=== PATIENT | female | born 1970 | race Caucasian/White ===

== ENCOUNTER 2023-02-15 13:45 | Outpatient (RCR) | payer BC, SELFPAY | END 2023-04-08 14:51 | disposition home or self-care (01) | PROVIDERS: PCP Physician Assistant Medical; Visit Provider Physician Assistant Surgical | DX: Z48.89 Encounter for other specified surgical aftercare (principal); R29.898 Other symptoms and signs involving the musculoskeletal system; R29.3 Abnormal posture; R53.1 Weakness; Z74.09 Other reduced mobility; Z51.89 Encounter for other specified aftercare | CPT/HCPCS: 97110; 97162 ==

== ENCOUNTER 2023-05-07 10:09 | Outpatient (RCR) | payer BC, SELFPAY | END 2023-09-04 23:59 | disposition home or self-care (01) | PROVIDERS: PCP Physician Assistant Medical; Visit Provider Physician Assistant Medical | DX: M54.16 Radiculopathy, lumbar region (principal); M79.604 Pain in right leg; Z51.89 Encounter for other specified aftercare | CPT/HCPCS: 97110; 97162 ==

== ENCOUNTER 2024-01-07 10:06 | Outpatient (CLI) | payer BC, SELFPAY | END 2024-01-07 10:07 | disposition home or self-care (01) | LOC: INJ CL 10:09 | PROVIDERS: PCP Physician Assistant Medical; Visit Provider Family Medicine | DX: M53.3 Sacrococcygeal disorders, not elsewhere classified (principal) | CPT/HCPCS: 27096; J0702; Q9966 ==

== ENCOUNTER 2024-07-07 21:00 | Outpatient (CLI) | payer BC, SELFPAY | END 2024-07-07 21:01 | disposition home or self-care (01) | PROVIDERS: PCP Physician Assistant Medical; Visit Provider Physician Assistant Medical | DX: G47.33 Obstructive sleep apnea (adult) (pediatric) (principal); I49.9 Cardiac arrhythmia, unspecified | CPT/HCPCS: 95810 ==

== ENCOUNTER 2024-11-24 06:18 | Outpatient (CLI) | payer OTHER, SELFPAY | END 2024-11-24 06:19 | disposition home or self-care (01) | LOC: INJ CL 06:20 | PROVIDERS: PCP Physician Assistant Medical; Visit Provider Family Medicine | DX: M54.16 Radiculopathy, lumbar region (principal); M51.369 Other intervertebral disc degeneration, lumbar region without mention of lumbar back pain or lower extremity pain | CPT/HCPCS: 64483; J1100; Q9966 ==

== ENCOUNTER 2025-03-23 16:45 | Outpatient (RCR) | payer OTHER, SELFPAY | END 2025-06-18 09:31 | disposition home or self-care (01) | PROVIDERS: PCP Physician Assistant Medical; Visit Provider Physician Assistant Medical | DX: Z47.1 Aftercare following joint replacement surgery (principal); Z96.652 Presence of left artificial knee joint; M51.360 Other intervertebral disc degeneration, lumbar region with discogenic back pain only; M25.562 Pain in left knee; M51.26 Other intervertebral disc displacement, lumbar region; G89.29 Other chronic pain; Z51.89 Encounter for other specified aftercare | CPT/HCPCS: 97110; 97140; 97162 ==